=== PATIENT | male | born 1960 | race African-American/Black ===

== ENCOUNTER 2017-11-14 16:52 | Emergency (ER) | payer MEDICAID ==
[~2017-11-14] VITALS: Ht 175.3 cm; Wt 91.0 kg
[~2017-11-14 16:52] MED LIST: UNK MEDS
[2017-11-14] MEDS ORDERED: PANTOPRAZOLE 80 MG in SODIUM CHLORIDE 0.9% 100 ML IV SCH ×2 (21:00→21:45)
[2017-11-14] MEDS ORDERED: OCTREOTIDE 1,000 MCG in SODIUM CHLORIDE 0.9% 100 ML IV ONE ×2 (21:00→21:45)
[2017-11-14] MEDS ORDERED: PANTOPRAZOLE SODIUM 40 MG/VIAL IV ONE (21:00)
[2017-11-14] MEDS ORDERED: OCTREOTIDE ACETATE 50 MCG/ML 1ML IV ONE (21:00)
[2017-11-14] MEDS ORDERED: SODIUM CHLORIDE 0.9% 1,000 ML IV ONE (21:02)
[2017-11-14 23:55] VITALS: BP 124/80
[2017-11-15] MEDS ORDERED: ONDANSETRON HCL 4MG/2ML VIAL IV PRN
[2017-11-15] MEDS ORDERED: PANTOPRAZOLE 80 MG in SODIUM CHLORIDE 0.9% 100 ML IV SCH ×2
[2017-11-15] MEDS ORDERED: IPRATROPIUM/ALBUTEROL 0.5-3(2.5)MG/3ML NEB INH PRN
[2017-11-15 00:29] LABS: BASOPHILS % 0.6 % (0.0-2.0); EOSINOPHILS % 1.3 % (0.0-5.0); HEMATOCRIT. 24.1 % (42.0-52.0); HEMOGLOBIN. 8.3 g/dL (14.0-18.0); LYMPHOCYTES % 20.4 % (20.0-50.0); MEAN CORPUSCULAR HEMOGLOBIN 31.4 pg (28.0-32.0); MEAN CORPUSCULAR VOLUME 91.5 fL (80.0-94.0); MEAN PLATELET VOLUME 8.3 fl (7.4-10.4); MONOCYTES % 7.3 % (2.0-8.0); NEUTROPHILS % 70.4 % (40.0-76.0); PLATELET 202 x1000/uL (130-400); RED BLOOD CELL COUNT 2.64 mill/uL (4.7-6.1); RED CELL DISTRIBUTION WIDTH 14.4 % (11.6-14.6)
[2017-11-15 00:33] LABS: CHLORIDE 108 mEq/L (98-107)
[2017-11-15 00:35] LABS: PROTHROMBIN TIME 10.6 sec (9.4-11.6)
[2017-11-15 00:37] LABS: ETHANOL BLOOD < 10 mg/dL
[2017-11-15 01:27] LABS: CLARITY URINE CLEAR (CLEAR); COLOR URINE YELLOW (YELLOW); KETONES URINE TRACE (NEGATIVE); LEUKOCYTE ESTERASE URINE NEGATIVE (NEGATIVE); NITRITE URINE NEGATIVE (NEGATIVE); OCCULT BLOOD URINE NEGATIVE (NEGATIVE); PROTEIN URINE NEGATIVE (NEGATIVE); SPECIFIC GRAVITY URINE 1.022 (1.005-1.030); UROBILINOGEN URINE 0.2 E.U./dL (0.2-1.0)
[2017-11-15 01:36] LABS: *AMPHETAMINES SCREEN URINE NEGATIVE (NEGATIVE); *BARBITURATES SCREEN URINE NEGATIVE (NEGATIVE); *BENZODIAZEPINES SCREEN URINE NEGATIVE (NEGATIVE); *COCAINE SCREEN URINE NEGATIVE (NEGATIVE)
[2017-11-15 01:37] LABS: CANNABINOID URINE SCREEN PRESUMTIVE POSITIVE (NEGATIVE); METHADONE URINE SCREEN NEGATIVE (NEGATIVE); OPIATES URINE SCREEN NEGATIVE (NEGATIVE); PHENCYCLIDINE URINE SCREEN NEGATIVE (NEGATIVE)
[2017-11-15 17:51] LABS: CREATINE KINASE MB FRACTION 4.7 ng/mL (0.5-3.6)
[2017-11-16] MEDS ORDERED: AMLO5TAB88 PO (11:56)
[2017-11-16] MEDS ORDERED: LOSA25TA3 PO (11:56)
[2017-11-16] MEDS ORDERED: OMEP20CA10 PO (11:56)
== END 2017-11-15 00:18 ==
LOC: ER 16:52 → EDBEDREQ 22:44 → EDBEDREQTM 22:44 → ENRESERV 23:01 → ER 11-15 00:18 → CANBEDREQ 11-15 23:35
DX: K92.2 Gastrointestinal hemorrhage, unspecified (principal)
CPT/HCPCS: 36415; 43235; 80053; 80305; 81003; 83735; 85025; 85044; 85610; 86850; 86900; 86901; 96365; 96375; 96376; 99291; C9113; G0482; J2354; 96366; J7050

== ENCOUNTER 2018-02-24 17:45 | Emergency (ER) | payer MEDICAID ==
[~2018-02-24] VITALS: Ht 170.2 cm; Wt 99.0 kg
[~2018-02-24 17:45] MED LIST changes: +AMLO5TAB88 PO; +LOSA25TA3 PO; +OMEP20CA10 PO; -UNK MEDS
[2018-02-24] MEDS ORDERED: IBUPROFEN 600MG TABLET PO ONE (19:30)
[2018-02-24 23:25] VITALS: BP 130/89
== END 2018-02-24 23:27 | disposition home or self-care (01) ==
LOC: ER 17:45
DX: S13.4XXA Sprain of ligaments of cervical spine, initial encounter (principal); S63.592A Other specified sprain of left wrist, initial encounter; I10 Essential (primary) hypertension; F17.200 Nicotine dependence, unspecified, uncomplicated; V43.52XA Car driver injured in collision with other type car in traffic accident, initial encounter; Y93.89 Activity, other specified; Y92.488 Other paved roadways as the place of occurrence of the external cause
CPT/HCPCS: 29125; 99283; L0172

== ENCOUNTER 2018-02-27 11:43 | Emergency (ER) | payer MEDICAID ==
[~2018-02-27] VITALS: Ht 172.7 cm; Wt 99.0 kg
[2018-02-27 12:08] VITALS: BP 140/93
== END 2018-02-27 16:44 | disposition left against medical advice (07) ==
LOC: ER 14:01
DX: M79.631 Pain in right forearm (principal); I10 Essential (primary) hypertension; F17.200 Nicotine dependence, unspecified, uncomplicated; Z53.21 Procedure and treatment not carried out due to patient leaving prior to being seen by health care provider

== ENCOUNTER 2019-04-15 11:53 | Emergency (ER) | payer MEDICAID ==
[~2019-04-15] VITALS: Ht 175.3 cm; Wt 94.0 kg
[~2019-04-15 11:53] MED LIST changes: -OMEP20CA10 PO; +OMEP20CA5 PO
[2019-04-15] MEDS ORDERED: HYDROCODONE/ACETAMINOPHEN 5/325MG TABLET PO STA (12:43)
[2019-04-15] MEDS ORDERED: ASPIRIN 81MG TABLET PO ONE (12:45)
[2019-04-15 13:19] LABS: BASOPHILS % 0.8 % (0.0-2.0); EOSINOPHILS % 0.9 % (0.0-5.0); HEMATOCRIT. 43.3 % (42.0-52.0); HEMOGLOBIN. 14.8 g/dL (14.0-18.0); LYMPHOCYTES % 16.9 % (20.0-50.0); MEAN CORPUSCULAR HEMOGLOBIN 31.9 pg (28.0-32.0); MEAN CORPUSCULAR VOLUME 93.3 fL (80.0-94.0); MEAN PLATELET VOLUME 7.7 fl (7.4-10.4); NEUTROPHILS % 74.4 % (40.0-76.0); PLATELET 260 x1000/uL (130-400); RED BLOOD CELL COUNT 4.64 mill/uL (4.7-6.1); RED CELL DISTRIBUTION WIDTH 14.3 % (11.6-14.6)
[2019-04-15 13:24] LABS: CHLORIDE 101 mEq/L (98-107)
[2019-04-15 13:27] LABS: PARTIAL THROMBOPLASTIN TIME 25.2 sec (23.4-31.0)
[2019-04-15] MEDS ORDERED: MAGNESIUM/ALUMINUM HYDROXIDE/SIMETHICONE 30ML UDC PO STA (14:20)
[2019-04-15] MEDS ORDERED: METOCLOPRAMIDE HCL 10MG/2ML VIAL IV STA (14:20)
[2019-04-15] MEDS ORDERED: FAMOTIDINE 20MG/2ML VIAL IV STA (14:20)
[2019-04-15 16:24] VITALS: BP 138/86
== END 2019-04-15 16:49 | disposition home or self-care (01) ==
LOC: ER 11:53
DX: R07.9 Chest pain, unspecified (principal); R61 Generalized hyperhidrosis; R11.10 Vomiting, unspecified; R10.13 Epigastric pain; I10 Essential (primary) hypertension
CPT/HCPCS: 36415; 71045; 74176; 80053; 83880; 84484; 85025; 85610; 85730; 93005; 96374; 96375; 99284; J2765; J3490; Z7610

== ENCOUNTER 2019-11-30 17:00 | Emergency (ER) | payer MEDICAID ==
[~2019-11-30] VITALS: Ht 175.3 cm; Wt 103.0 kg
[~2019-11-30 17:00] MED LIST changes: +OMEP20CA14 PO; -OMEP20CA5 PO
[2019-11-30 18:10] LABS: BASOPHILS % 0.9 % (0.0-2.0); EOSINOPHILS % 2.3 % (0.0-5.0); HEMOGLOBIN. 13.8 g/dL (14.0-18.0); LYMPHOCYTES % 17.7 % (20.0-50.0); MEAN CORPUSCULAR HEMOGLOBIN 32.7 pg (28.0-32.0); MEAN CORPUSCULAR VOLUME 94.5 fL (80.0-94.0); MEAN PLATELET VOLUME 7.9 fl (7.4-10.4); MONOCYTES % 7.5 % (2.0-8.0); NEUTROPHILS % 71.6 % (40.0-76.0); PLATELET 263 x1000/uL (130-400); RED BLOOD CELL COUNT 4.23 mill/uL (4.7-6.1); RED CELL DISTRIBUTION WIDTH 14.5 % (11.6-14.6)
[2019-11-30] MEDS ORDERED: ASPIRIN 81MG TABLET PO ONE (18:15)
[2019-11-30] MEDS ORDERED: NITROGLYCERIN 0.4MG TABLET SL SL PRN (18:15)
[2019-11-30 18:17] LABS: CHLORIDE 104 mEq/L (98-107)
[2019-11-30 21:00] VITALS: BP 137/83
== END 2019-11-30 21:59 | disposition home or self-care (01) ==
LOC: ER 17:00
DX: R07.89 Other chest pain (principal); N28.9 Disorder of kidney and ureter, unspecified; I10 Essential (primary) hypertension; F17.210 Nicotine dependence, cigarettes, uncomplicated
CPT/HCPCS: 36415; 71045; 80053; 83880; 84484; 85025; 93005; 99285; Z7610

== ENCOUNTER 2020-04-21 16:07 | Emergency (ER) | payer MEDICAID ==
[~2020-04-21] VITALS: Ht 175.3 cm; Wt 102.0 kg
[2020-04-21] MEDS ORDERED: FAMOTIDINE 20MG TABLET PO ONE (17:30)
[2020-04-21] MEDS ORDERED: MAGNESIUM/ALUMINUM HYDROXIDE/SIMETHICONE 30ML UDC PO ONE (17:30)
[2020-04-21] MEDS ORDERED: ASPIRIN 81MG TABLET PO ONE (17:30)
[2020-04-21 17:48] LABS: BASOPHILS % 0.7 % (0.0-2.0); CHLORIDE 106 mEq/L (98-107); EOSINOPHILS % 2.1 % (0.0-5.0); HEMATOCRIT. 40.8 % (42.0-52.0); LYMPHOCYTES % 19.4 % (20.0-50.0); MEAN CORPUSCULAR HEMOGLOBIN 32.2 pg (28.0-32.0); MEAN CORPUSCULAR VOLUME 93.7 fL (80.0-94.0); MEAN PLATELET VOLUME 7.5 fl (7.4-10.4); MONOCYTES % 8.5 % (2.0-8.0); NEUTROPHILS % 69.3 % (40.0-76.0); PLATELET 268 x1000/uL (130-400); RED BLOOD CELL COUNT 4.36 mill/uL (4.7-6.1); RED CELL DISTRIBUTION WIDTH 14.5 % (11.6-14.6)
[2020-04-21] MEDS ORDERED: DICYCLOMINE 10 MG/5 ML ORAL SYR PO STA (18:57)
[2020-04-21] MEDS ORDERED: VISCOUS LIDOCAINE 2% 15 ML UDC PO STA (18:57)
[2020-04-21 19:30] VITALS: BP 160/88
== END 2020-04-21 20:00 | disposition home or self-care (01) ==
LOC: ER 16:07
DX: R07.89 Other chest pain (principal); R10.9 Unspecified abdominal pain; I10 Essential (primary) hypertension
CPT/HCPCS: 36415; 71045; 80053; 83690; 83880; 84484; 85025; 93005; 99285; Z7610

== ENCOUNTER 2021-02-03 08:46 | Emergency (ER) | payer MEDICAID, OTHER ==
[~2021-02-03] VITALS: Ht 175.3 cm; Wt 100.0 kg
[2021-02-03] MEDS ORDERED: PANTOPRAZOLE 40MG DR TABLET PO ONE (09:15)
[2021-02-03] MEDS ORDERED: MAGNESIUM/ALUMINUM HYDROXIDE/SIMETHICONE 30ML UDC PO ONE (09:15)
[2021-02-03] MEDS ORDERED: VISCOUS LIDOCAINE 2% 15 ML UDC PO ONE (09:15)
[2021-02-03 09:25] LABS: BASOPHILS % 1.2 % (0.0-2.0); EOSINOPHILS % 1.7 % (0.0-5.0); HEMATOCRIT. 44.1 % (42.0-52.0); LYMPHOCYTES % 25.6 % (20.0-50.0); MEAN CORPUSCULAR HEMOGLOBIN 31.6 pg (28.0-32.0); MEAN CORPUSCULAR VOLUME 92.8 fL (80.0-94.0); MEAN PLATELET VOLUME 7.5 fl (7.4-10.4); MONOCYTES % 8.3 % (2.0-8.0); NEUTROPHILS % 63.2 % (40.0-76.0); PLATELET 250 x1000/uL (130-400); RED BLOOD CELL COUNT 4.75 mill/uL (4.7-6.1); RED CELL DISTRIBUTION WIDTH 14.1 % (11.6-14.6)
[2021-02-03 09:33] LABS: CHLORIDE 103 mEq/L (98-107)
[2021-02-03] MEDS ORDERED: FUROSEMIDE 20MG/2ML VIAL IVP NR (10:00)
[2021-02-03] MEDS ORDERED: OMEP40CA12 MT (10:07)
[2021-02-03 10:44] VITALS: BP 155/110
== END 2021-02-03 10:46 | disposition home or self-care (01) ==
LOC: ER 08:46
DX: R10.13 Epigastric pain (principal); K27.9 Peptic ulcer, site unspecified, unspecified as acute or chronic, without hemorrhage or perforation; I10 Essential (primary) hypertension; R94.39 Abnormal result of other cardiovascular function study
CPT/HCPCS: 36415; 71045; 80053; 83690; 83880; 84484; 85025; 93005; 96374; 99285; J1940

== ENCOUNTER 2021-08-25 13:47 | Emergency (ER) | payer MEDICAID, OTHER ==
[~2021-08-25] VITALS: Ht 182.9 cm; Wt 103.0 kg
[~2021-08-25 13:47] MED LIST changes: +OMEP40CA20 MT
[2021-08-25 13:50] VITALS: BP 123/87
== END 2021-08-25 18:58 | disposition left against medical advice (07) ==
LOC: ER 13:47
DX: Z53.21 Procedure and treatment not carried out due to patient leaving prior to being seen by health care provider (principal); I11.0 Hypertensive heart disease with heart failure; I50.9 Heart failure, unspecified
CPT/HCPCS: 82962; 93005

== ENCOUNTER 2022-03-08 12:28 | Emergency (ER) | payer OTHER, MEDICAID ==
[~2022-03-08] VITALS: Ht 175.3 cm; Wt 96.0 kg
[2022-03-08 12:48] VITALS: BP 150/94
[2022-03-08 15:41] LABS: BASOPHILS % 0.8 % (0.0-2.0); EOSINOPHILS % 3.9 % (0.0-5.0); HEMATOCRIT. 33.1 % (42.0-52.0); HEMOGLOBIN. 11.5 g/dL (14.0-18.0); LYMPHOCYTES % 14.3 % (20.0-50.0); MEAN CORPUSCULAR HEMOGLOBIN 31.6 pg (28.0-32.0); MEAN CORPUSCULAR VOLUME 90.5 fL (80.0-94.0); MEAN PLATELET VOLUME 7.2 fl (7.4-10.4); MONOCYTES % 9.1 % (2.0-8.0); NEUTROPHILS % 71.9 % (40.0-76.0); PLATELET 353 x1000/uL (130-400); RED BLOOD CELL COUNT 3.65 mill/uL (4.7-6.1); RED CELL DISTRIBUTION WIDTH 14.4 % (11.6-14.6)
[2022-03-08 15:48] LABS: CHLORIDE 103 mEq/L (98-107)
== END 2022-03-08 17:06 | disposition left against medical advice (07) ==
LOC: ER 12:28
DX: K92.2 Gastrointestinal hemorrhage, unspecified (principal); I11.0 Hypertensive heart disease with heart failure; I50.9 Heart failure, unspecified
CPT/HCPCS: 36415; 80053; 82270; 85025; 99283

== ENCOUNTER 2023-05-02 13:38 | Emergency (ER) | payer OTHER, MEDICAID ==
[~2023-05-02] VITALS: Ht 177.8 cm; Wt 100.0 kg
[~2023-05-02 13:38] MED LIST changes: +LOSA-412 PO; -LOSA25TA3 PO
[2023-05-02 13:47] VITALS: BP 129/85; PULSE 96; RESP 18; TEMP 98.5; O2SAT 99
[2023-05-02 17:01] LABS: EOSINOPHILS % 1.6 % (0.0-5.0); HEMATOCRIT. 38.3 % (42.0-52.0); HEMOGLOBIN. 12.9 g/dL (14.0-18.0); MEAN CORPUSCULAR HEMOGLOBIN 32.1 pg (28.0-32.0); MEAN CORPUSCULAR HGB CONC 33.6 g/dL (31.0-37.0); MEAN CORPUSCULAR VOLUME 95.4 fL (80.0-94.0); MEAN PLATELET VOLUME 7.3 fl (7.4-10.4); MONOCYTES % 7.9 % (2.0-8.0); NEUTROPHILS % 68.5 % (40.0-76.0); PLATELET 263 x1000/uL (130-400); RED BLOOD CELL COUNT 4.01 mill/uL (4.7-6.1); RED CELL DISTRIBUTION WIDTH 14.6 % (11.6-14.6); WHITE BLOOD COUNT 7.4 x1000/uL (4.5-11.0)
[2023-05-02 17:14] LABS: ALANINE AMINOTRANSFERASE 8 IU/L (10-49); ALBUMIN 4.4 g/dL (3.2-4.8); ASPARTATE AMINOTRANSFERASE 14 IU/L (<34); BILIRUBIN TOTAL 0.5 mg/dL (0.1-1.0); CALCIUM 9.5 mg/dL (8.7-10.4); CARBON DIOXIDE 28 mEq/L (21-32); CHLORIDE 104 mEq/L (98-107); CREATININE 2.2 mg/dL (0.6-1.3); GLUCOSE 75 mg/dL (70-105); POTASSIUM 3.5 mEq/L (3.5-5.1); SODIUM 139 mEq/L (136-145); TROPONIN I HIGH SENSITIVITY 19 ng/L (3.0-53); UREA NITROGEN BLOOD 16 mg/dL (9-23)
[2023-05-02 18:00] LABS: CLARITY URINE CLEAR (CLEAR); COLOR URINE DARK YELLOW (YELLOW); GLUCOSE URINE NEGATIVE (NEGATIVE); KETONES URINE TRACE (NEGATIVE); LEUKOCYTE ESTERASE URINE TRACE (NEGATIVE); NITRITE URINE NEGATIVE (NEGATIVE); OCCULT BLOOD URINE NEGATIVE (NEGATIVE); PROTEIN URINE 1+ (NEGATIVE); SPECIFIC GRAVITY URINE 1.023 (1.005-1.030)
[2023-05-02 18:04] LABS: YEAST URINE NONE SEEN
[2023-05-02 18:45] LABS: BACTERIA URINE TRACE; SQUAMOUS EPITHELIAL CELL URINE RARE /lpf (RARE/1+)
[2023-05-02] MEDS ORDERED: CIPR500T5 MT ×2 (20:53)
== END 2023-05-02 17:33 | disposition left against medical advice (07) ==
LOC: ER 13:38
DX: N39.0 Urinary tract infection, site not specified (principal); I11.0 Hypertensive heart disease with heart failure; I50.9 Heart failure, unspecified
CPT/HCPCS: 36415; 74176; 80053; 81003; 84484; 85025; 93005; 99285

== ENCOUNTER 2023-11-04 17:09 | Emergency (ER) | payer MEDICAID ==
[~2023-11-04] VITALS: Ht 175.3 cm; Wt 100.0 kg
[~2023-11-04 17:09] MED LIST changes: +CIPR500T5 MT
[2023-11-04 17:18] VITALS: O2SAT 98
[2023-11-04] MEDS: ACETAMINOPHEN 500MG TABLET PO ONE (18:40)
[2023-11-04] MEDS ORDERED: ACET-2708 MT (18:48)
[2023-11-04] MEDS ORDERED: METH-653 MT (18:48)
[2023-11-04] MEDS ORDERED: LIDO700A15 TP (18:48)
[2023-11-04 19:00] VITALS: BP 151/89; PULSE 79; RESP 16; TEMP 98.1
== END 2023-11-04 21:08 | disposition home or self-care (01) ==
LOC: ER 17:09
DX: M25.511 Pain in right shoulder (principal); M25.551 Pain in right hip; M25.561 Pain in right knee; I11.0 Hypertensive heart disease with heart failure; I50.9 Heart failure, unspecified; K21.9 Gastro-esophageal reflux disease without esophagitis; Z79.899 Other long term (current) drug therapy
CPT/HCPCS: 73030; 73502; 73562; 99284

== ENCOUNTER 2023-11-10 13:49 | Emergency (ER) | payer MEDICAID ==
[~2023-11-10] VITALS: Ht 175.3 cm; Wt 102.0 kg
[~2023-11-10 13:49] MED LIST changes: +ACET-2708 MT; +LIDO700A15 TP; +METH-653 MT
[2023-11-10 13:53] VITALS: TEMP 98.4; O2SAT 100
[2023-11-10 14:25] LABS: CHLORIDE 105 mEq/L (98-107); EOSINOPHILS % 2.4 % (0.0-5.0); HEMATOCRIT. 36.4 % (42.0-52.0); HEMOGLOBIN. 12.9 g/dL (14.0-18.0); LYMPHOCYTES % 19.1 % (20.0-50.0); MEAN CORPUSCULAR HEMOGLOBIN 32.7 pg (28.0-32.0); MEAN CORPUSCULAR HGB CONC 35.4 g/dL (31.0-37.0); MEAN CORPUSCULAR VOLUME 92.6 fL (80.0-94.0); MEAN PLATELET VOLUME 7.1 fl (7.4-10.4); NEUTROPHILS % 70.5 % (40.0-76.0); PLATELET 297 x1000/uL (130-400); POTASSIUM 3.6 mEq/L (3.5-5.1); RED BLOOD CELL COUNT 3.93 mill/uL (4.7-6.1); RED CELL DISTRIBUTION WIDTH 14.6 % (11.6-14.6); SODIUM 139 mEq/L (136-145); WHITE BLOOD COUNT 7.2 x1000/uL (4.5-11.0)
[2023-11-10 14:52] LABS: CALCIUM 9.4 mg/dL (8.7-10.4); CARBON DIOXIDE 27 mEq/L (21-32)
[2023-11-10 14:57] LABS: CREATININE 1.9 mg/dL (0.6-1.3)
[2023-11-10 14:58] LABS: GLUCOSE 119 mg/dL (70-105); TROPONIN I HIGH SENSITIVITY 18 ng/L (3.0-53); UREA NITROGEN BLOOD 23 mg/dL (9-23)
[2023-11-10] MEDS ORDERED: HYDROCODONE/ACETAMINOPHEN 7.5/325MG TABLET PO ONE (15:30)
[2023-11-10] MEDS: SODIUM CHLORIDE 0.9% 1,000 ML IV ONE (15:45)
[2023-11-10] MEDS ORDERED: SODIUM CHLORIDE 0.9% 1,000 ML IV ONE (15:45)
[2023-11-10 17:00] VITALS: BP 135/72; PULSE 88; RESP 20
[2023-11-10] MEDS: HYDROCODONE/ACETAMINOPHEN 7.5/325MG TABLET PO NR (17:00)
[2023-11-10] MEDS ORDERED: HYDR-4001 MT (19:41)
== END 2023-11-10 19:45 | disposition home or self-care (01) ==
LOC: ER 13:49
DX: R07.89 Other chest pain (principal); R06.02 Shortness of breath; I11.0 Hypertensive heart disease with heart failure; I50.9 Heart failure, unspecified; K21.9 Gastro-esophageal reflux disease without esophagitis; Z79.899 Other long term (current) drug therapy
CPT/HCPCS: 80048; 85025; 85379; 84484; 36415; 71045; 93005; 96360; 99285; Z7610 ×2; J7030

== ENCOUNTER 2024-06-14 09:37 | Emergency (ER) | payer MEDICAID ==
[~2024-06-14] VITALS: Ht 175.3 cm; Wt 99.7 kg
[~2024-06-14 09:37] MED LIST changes: +HYDR-4001 MT
[2024-06-14 09:57] VITALS: TEMP 36.61404; O2SAT 98
[2024-06-14 10:33] VITALS: BP 165/111; PULSE 75; RESP 16
[2024-06-14] MEDS: HYDROCODONE/ACETAMINOPHEN 5/325MG TABLET PO STA (10:33)
[2024-06-14 11:41] LABS: BASOPHILS % 0.8 % (0.0-2.0); EOSINOPHILS % 1.9 % (0.0-5.0); HEMATOCRIT. 41.3 % (42.0-52.0); LYMPHOCYTES % 24.1 % (20.0-50.0); MEAN CORPUSCULAR HEMOGLOBIN 31.6 pg (28.0-32.0); MEAN CORPUSCULAR HGB CONC 33.9 g/dL (31.0-37.0); MEAN CORPUSCULAR VOLUME 93.4 fL (80.0-94.0); MEAN PLATELET VOLUME 7.8 fl (7.4-10.4); MONOCYTES % 9.2 % (2.0-8.0); PLATELET 240 x1000/uL (130-400); RED BLOOD CELL COUNT 4.42 mill/uL (4.7-6.1); RED CELL DISTRIBUTION WIDTH 14.8 % (11.6-14.6); WHITE BLOOD COUNT 5.8 x1000/uL (4.5-11.0)
[2024-06-14 11:43] LABS: POTASSIUM 3.9 mEq/L (3.5-5.1)
[2024-06-14 11:45] LABS: CALCIUM 9.6 mg/dL (8.7-10.4)
[2024-06-14 11:49] LABS: CREATININE 1.7 mg/dL (0.6-1.3)
[2024-06-14] MEDS ORDERED: HYDR-4001 MT (13:11)
== END 2024-06-14 13:32 | disposition home or self-care (01) ==
LOC: ER 09:52
DX: S16.1XXA Strain of muscle, fascia and tendon at neck level, initial encounter (principal); M25.552 Pain in left hip; M25.551 Pain in right hip; J45.909 Unspecified asthma, uncomplicated; I10 Essential (primary) hypertension; Z79.899 Other long term (current) drug therapy; V49.59XA Passenger injured in collision with other motor vehicles in traffic accident, initial encounter; Y93.89 Activity, other specified; Y92.89 Other specified places as the place of occurrence of the external cause; Y99.8 Other external cause status
CPT/HCPCS: 36415; 71250; 74176; 80048; 85025; 99284

== ENCOUNTER 2024-06-16 12:19 | Emergency (ER) | payer MEDICAID ==
[~2024-06-16] VITALS: Ht 175.3 cm; Wt 99.0 kg
[2024-06-16 12:37] VITALS: O2SAT 99
[2024-06-16] MEDS: METHYLPREDNISOLONE SOD SUCC 125MG/2ML (ACT-O-VIAL) IM STA (16:22)
[2024-06-16] MEDS: ACETAMINOPHEN 325MG TABLET PO STA (16:22)
[2024-06-16] MEDS: ONDANSETRON 4MG ODT PO ONE (16:23)
[2024-06-16] MEDS: MAGNESIUM/ALUMINUM HYDROXIDE/SIMETHICONE 30ML UDC PO ONE (16:23)
[2024-06-16] MEDS ORDERED: ONDA4TAB50 MT (17:15)
[2024-06-16] MEDS ORDERED: P50 MT (17:15)
[2024-06-16] MEDS ORDERED: ALBU18HF2 IH (17:15)
[2024-06-16] MEDS: IPRATROPIUM BROMIDE (0.02%) 0.5MG/2.5ML NEB HHN STA (17:25)
[2024-06-16] MEDS: ALBUTEROL (0.083%) 2.5MG/3ML NEB HHN STA (17:25)
[2024-06-16 17:36] VITALS: BP 151/91; PULSE 85; RESP 18; TEMP 37.11408; O2SAT 99
== END 2024-06-16 17:51 | disposition home or self-care (01) ==
LOC: ER 12:30
DX: J45.901 Unspecified asthma with (acute) exacerbation (principal); J06.9 Acute upper respiratory infection, unspecified; K21.9 Gastro-esophageal reflux disease without esophagitis; I11.0 Hypertensive heart disease with heart failure; I50.9 Heart failure, unspecified; Z79.899 Other long term (current) drug therapy; Z96.659 Presence of unspecified artificial knee joint
CPT/HCPCS: 71045; 96372; 99284; Q0162; J2919; Z7610

== ENCOUNTER 2024-10-04 08:30 | Emergency (ER) | payer MEDICAID ==
[~2024-10-04] VITALS: Ht 175.3 cm; Wt 99.7 kg
[~2024-10-04 08:30] MED LIST changes: +ALBU18HF2 IH; +ONDA4TAB50 MT; +P50 MT
[2024-10-04 08:43] VITALS: O2SAT 100
[2024-10-04 09:10] LABS: BASOPHILS % 0.9 % (0.0-2.0); EOSINOPHILS % 2.2 % (0.0-5.0); HEMATOCRIT. 41.8 % (42.0-52.0); HEMOGLOBIN. 14.2 g/dL (14.0-18.0); LYMPHOCYTES % 21.3 % (20.0-50.0); MEAN CORPUSCULAR HEMOGLOBIN 31.1 pg (28.0-32.0); MEAN CORPUSCULAR VOLUME 91.5 fL (80.0-94.0); MEAN PLATELET VOLUME 7.3 fl (7.4-10.4); NEUTROPHILS % 66.6 % (40.0-76.0); PLATELET 248 x1000/uL (130-400); RED BLOOD CELL COUNT 4.56 mill/uL (4.7-6.1); RED CELL DISTRIBUTION WIDTH 14.9 % (11.6-14.6); WHITE BLOOD COUNT 5.1 x1000/uL (4.5-11.0)
[2024-10-04 09:24] LABS: CHLORIDE 105 mEq/L (98-107); SODIUM 140 mEq/L (136-145)
[2024-10-04 09:26] LABS: CALCIUM 9.9 mg/dL (8.7-10.4); CARBON DIOXIDE 31 mEq/L (21-32)
[2024-10-04 09:31] LABS: CREATININE 1.6 mg/dL (0.6-1.3); GLUCOSE 68 mg/dL (70-105); UREA NITROGEN BLOOD 20 mg/dL (9-23)
[2024-10-04 09:33] LABS: TROPONIN I HIGH SENSITIVITY 14 ng/L (3.0-53)
[2024-10-04 10:15] LABS: D-DIMER 0.74 mg/L FEU (<0.50); PROTHROMBIN TIME 10.3 sec (9.6-11.0)
[2024-10-04 10:19] LABS: ALANINE AMINOTRANSFERASE 10 IU/L (10-49); ALBUMIN 4.2 g/dL (3.2-4.8); ASPARTATE AMINOTRANSFERASE 16 IU/L (<34); BILIRUBIN DIRECT 0.2 mg/dL (<=3.0)
[2024-10-04 10:20] LABS: BILIRUBIN TOTAL 0.7 mg/dL (0.1-1.0)
[2024-10-04] MEDS: ASPIRIN 325MG EC TABLET PO ONE (10:26)
[2024-10-04] MEDS: NITROGLYCERIN 0.4MG TABLET SL SL ONE (10:26)
[2024-10-04 11:08] VITALS: BP 156/94; PULSE 79; RESP 18; TEMP 36.7; O2SAT 100
== END 2024-10-04 11:09 | disposition left against medical advice (07) ==
LOC: ER 08:30 → EDBEDREQ 09:43 → ER 11:09
DX: R07.89 Other chest pain (principal); I11.0 Hypertensive heart disease with heart failure; I50.9 Heart failure, unspecified; Z79.899 Other long term (current) drug therapy
CPT/HCPCS: 36415; 71045; 80048; 80076; 84484; 85025; 85379; 93005; 99291